=== PATIENT | male | born 1940 | race African-American/Black ===

== ENCOUNTER 2016-12-29 07:35 | Observation (INO) | payer OTHER ==
[~2016-12-29] VITALS: Ht 182.9 cm; Wt 81.6 kg
--- NOTE | ~2016-12-29 | DS ---
Unit #: [id number] #: [id number] Patient: BECKY GANT [id number] [address] [address] [id number] I MR#: [id number] NAME: BECKY GANT ROOM: 469 Age: 76 Sex: M Admission Date: 12/29/2016 : 1940 Discharge Date: Attending Physician: Migel Prescott M.D. Primary Care Physician: Ayesha Prasad M.D. DISCHARGE SUMMARY DISCHARGE DIAGNOSES 1. Obstipation. 2. Hypertension, uncontrolled. 3. Mild protein malnutrition. 4. Dementia. 5. Benign prostatic hypertrophy. 6. Mild hyponatremia. 7. Mild hypocalcemia. 8. Bilateral atelectasis. CONSULTATION None. PROCEDURES None. DIAGNOSTIC STUDIES LABORATORY: Urine culture negative. Blood cultures negative. Lactic acid 1.4. BNP 89. Ammonia 31. IMAGING: Chest x-ray, on December 29, shows no infiltrate. CT of the abdomen and pelvis shows no definite acute abnormality. Right small pleural effusion. Bilateral pulmonary consolidation, possibly atelectasis instead of infiltrate present. CT abdomen did not mention any abdominal obstruction. ALLERGIES None. DISCHARGE MEDICATIONS 1. Flomax 0.8 mg p.o. daily. 2. Tylenol 650 mg q.6 p.r.n. 3. Zofran 4 mg q.4 p.r.n. nausea. 4. Delsym 60 mg p.o. b.i.d. p.r.n. 5. Lopressor 50 mg p.o. b.i.d. 6. Bisacodyl 10 mg p.r.n. constipation. 7. Senna two tablets p.o. daily. 8. Colace 100 mg p.o. b.i.d. 9. Milk of Magnesia 30 mL p.o. daily p.r.n. constipation. 10. MiraLax 17 g p.o. daily p.r.n. constipation. 11. Hydrochlorothiazide 25 mg p.o. daily. 12. Lipitor 40 mg daily. 13. Lisinopril 20 mg daily. 14. Aspirin 325 mg daily. Unit #: [id number] #: [id number] Patient: BECKY GANT HOSPITALIZATION COURSE A 76-year-old admitted because of obstipation. Obstipation with severe constipation: The patient received Fleets enema, currently resolved, continue with stool softeners. Bilateral lung atelectasis, less likely pneumonia. No signs of infection. [facility]. The patient needs to be more mobile as much as possible to prevent further atelectasis and pneumonia. Hypertension, uncontrolled. Hydrochlorothiazide has been added. The patient will be discharged to rehab. Dictated by... Tali Lazo TD: 12/31/2016 12:23 JOB #: [id number] DISCHARGE SUMMARY Page 1 of 1 X Clarisa Montaño MD X DISCHARGE SUMMARY
--- NOTE | ~2016-12-29 | CR72 ---
[facility] A Service of [facility] RADIOLOGY TEXT RESULTS PATIENT: BECKY GANT LOCATION: [facility] : 38 UNIT #: [id number] AGE: [address]: Migel Prescott MD SEX: M ORDER DR: [id number] [facility] [address] [place], [place] [address] [id number] E MR#: [id number] Acc #: [id number] NAME: BECKY GANT : 1940 SEX: M STUDY DATE/TIME: 12/29/2016 8:20 UNIT: [facility] ROOM: STUDY DESCRIPTION: CR Chest Single View Portable Attending Physician: Erica Garvin M.D. Ordering Physician: Erica Garvin M.D. Primary Care Physician: Ayesha Prasad M.D. MEDICAL IMAGING REPORT This report is preliminary unless electronic signature is present EXAM Portable chest INDICATION Shortness of breath and heart palpitations today. COMPARISON 12/27/2016. FINDINGS There is increasing density in the right lung base suggestive of a new infiltrate. Stable atelectasis or consolidation in the medial left base. Heart size stable. IMPRESSION Increasing density in the right lung base suggestive of a new infiltrate. Follow up to clearing is recommended. Dictated by... Blanco Bergman M.D. THIS IS AN ELECTRONICALLY VERIFIED REPORT Blanco Bergman M.D. at 12/29/2016 5:04 PM WILLIAM/yamilka TD: 12/29/2016 09:13 JOB #: [id number] MEDICAL IMAGING REPORT Page 1 of 1 COPY
--- NOTE | ~2016-12-29 | CT4 ---
[facility] A Service of [facility] RADIOLOGY TEXT RESULTS PATIENT: BECKY GANT LOCATION: C4 469-01 : 38 UNIT #: [id number] AGE: [address]: Migel Prescott MD SEX: M ORDER DR: [id number] [facility] [address] [place], [place] [address] [id number] E MR#: [id number] Acc #: [id number] NAME: BECKY GANT : 1940 SEX: M STUDY DATE/TIME: 12/29/2016 8:08 UNIT: [facility] ROOM: STUDY DESCRIPTION: CT Abd and Pelv Wo Cont Attending Physician: Erica Garvin M.D. Ordering Physician: Erica Garvin M.D. Primary Care Physician: Ayesha Prasad M.D. MEDICAL IMAGING REPORT This report is preliminary unless electronic signature is present EXAM CT abdomen and pelvis without contrast, 12/29/2016. COMPARISON None PROCEDURE Axial unenhanced CT abdomen and pelvis with multiplanar reformats. This CT exam was performed with one or more of the following radiation dose reduction techniques: automatic exposure control, adjustment of mA and/or kV according to patient size, and iterative reconstruction. CLINICAL HISTORY One-day history of periumbilical abdominal pain. FINDINGS There is a small right effusion and there is bibasilar lung consolidation with some cystic change thought that cystic change may simply represent underlying emphysematous disease. There are no old studies for comparison. There is also a small pericardial effusion. Images of the upper abdomen reveal multiple bilateral low-density renal lesions almost undoubtedly simple cysts. Unenhanced images of the liver and gallbladder and spleen and pancreas are unremarkable. There is slight ectasia of the abdominal aorta in the mid abdomen but only to 3.0 cm. There is no evidence of bowel obstruction. There is no free air or evidence of abscess. PELVIS: There is some presacral edema but no definite ascites. The [facility] A Service of [facility] RADIOLOGY TEXT RESULTS PATIENT: BECKY GANT LOCATION: [facility] [address] : 38 UNIT #: [id number] AGE: [address]: Migel Prescott MD SEX: M ORDER DR: appendix is not identified on this CT without oral or IV contrast, but there is no direct evidence to suggest appendicitis. There is no hernia. Sclerotic changes in the right ilium are seen most suggestive of Paget disease of bone. The bony structures are otherwise unremarkable. IMPRESSION 1. No definite acute abnormality. There is a small right pleural effusion and there is bilateral pulmonary dependent consolidation, though possibly representing atelectasis instead of infiltrate. At both lung bases, there is some slight cystic change in this portion of lung but it could simply represent underlying emphysema, etiology certain. No comparison studies. 2. Unenhanced images of the liver, spleen, and pancreas and gallbladder are unremarkable. There are low-density renal lesions that are likely cysts but there is no evidence to suggest hydronephrosis and certainly no evidence of nephro or ureterolithiasis. 3. There is some pelvic presacral edema but no ascites. The appendix is not identified on this unenhanced study but there is no evidence to suggest appendicitis. 4. There is slight ectasia of the mid abdominal aorta but only to 3.0 cm. 5. 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 Dictated by... Luiz Mayes M.D. THIS IS AN ELECTRONICALLY VERIFIED REPORT Luiz Mayes M.D. at 12/29/2016 5:04 PM DAVID/james TD: 12/29/2016 09:40 JOB #: [id number] MEDICAL IMAGING REPORT Page 1 of 1 COPY
--- NOTE | ~2016-12-29 | EKG ---
PATIENT: BECKY GANT UNIT #: [id number] Ventricular Rate: 114 BPM Atrial Rate: 117 BPM QRS Duration: 74 ms Q-T Interval: 334 ms QTC Calculation(Bezet): 460 ms Calculated R [place]: 9 degrees Calculated T [place]: 59 degrees Diagnosis Line: Atrial fibrillation with rapid ventricular Diagnosis Line: response Diagnosis Line: Minimal voltage criteria for LVH, may be normal Diagnosis Line: variant Diagnosis Line: Abnormal ECG Diagnosis Line: When compared with ECG of 29-DEC-2016 08:34, Diagnosis Line: (unconfirmed) Diagnosis Line: No significant change was found Diagnosis Line: Confirmed by MICHELLE AG MD ([id number]) on Diagnosis Line: 12/30/2016 9:02:54 AM INTERPRETING MD: KIMBERLI SMILEY
[2016-12-29 08:26] LABS: POC - CKMB 1.7 ng/mL (0.0-7.9); POC - TROPONIN <0.05 ng/mL (<=0.05)
[2016-12-29 08:40] LABS: ALBUMIN SERUM 2.6 g/dL (3.5-5.0); BILIRUBIN, DIRECT 0.2 mg/dL (0.0-0.2); BILIRUBIN,INDIRECT 0.9 mg/dL (0.0-0.9); BILIRUBIN,TOTAL 1.1 mg/dL (0.2-2.0); CREATININE SERUM 0.8 mg/dL (0.6-1.4); GLOM FILT RATE Estimated 99.2 mL/min (>60); POTASSIUM 3.6 mmol/L (3.5-5.1); PROTEIN TOTAL SERUM 6.7 g/dL (6.0-8.3)
[2016-12-29] MEDS ORDERED: ZOSYN 3.373.375 GM/5 IV (08:54)
[2016-12-29] MEDS ORDERED: ASPIRIN ENTERI325 M1 PO (08:54)
[2016-12-29] MEDS ORDERED: LIPITOR40 MG PO (08:54)
[2016-12-29] MEDS ORDERED: LISINOPRIL10 MG PO (08:55)
[2016-12-29] MEDS ORDERED: SENEXON-S TABL1 EACH PO (08:56)
[2016-12-29] MEDS ORDERED: METOPROLOL TAR25 MG PO (08:56)
[2016-12-29 08:57] LABS: BASOPHIL# 0.1 X10e3 (0-0.3); BASOPHIL% 0.5 % (0-2.5); EOSINOPHIL# 0.1 X10e3 (0-0.7); EOSINOPHIL% 0.4 % (0.0-7.0); HEMATOCRIT 29.7 % (38.0-50.0); HEMOGLOBIN 9.5 gm/dL (13.0-16.0); LYMPHOCYTE# 0.8 X10e3 (1.0-3.5); MEAN CORPUSCULAR HEMOGLOBIN 29.4 PG (28-34); MONOCYTE% 12.6 % (3.0-12.0); NEUTROPHIL% 81.5 % (40-75); PLATELET COUNT 319 X10e3 (140-420); RED BLOOD COUNT 3.23 X10e (3.90-5.60); RED CELL DISTRIBUTION WIDTH 13.3 % (11.0-15.5); WHITE BLOOD COUNT 15.9 X10e3 (4.0-10.5)
[2016-12-29] MEDS ORDERED: FLOMAX0.4 M1 PO (08:58)
[2016-12-29 08:59] LABS: URINE SOURCE CATH
[2016-12-29] MEDS ORDERED: MIRALAX17 GM PO (08:59)
[2016-12-29] MEDS ORDERED: TYL325 PO (09:00)
[2016-12-29] MEDS ORDERED: DULCOLAX10 MG PR (09:00)
[2016-12-29] MEDS ORDERED: MILK OF MAGNESIA PO (09:01)
[2016-12-29] MEDS ORDERED: ZOFRAN ODT4 M1 PO (09:01)
[2016-12-29 09:06] LABS: DIFF IND YES
[2016-12-29 09:07] LABS: INR 1.2; PARTIAL THROMBOPLASTIN TIME 27.1 SECONDS (23.5-31.3); PROTHROMBIN TIME (PATIENT) 13.1 SECONDS (10.0-11.7)
[2016-12-29 09:09] LABS: URINE APPEARANCE CLEAR; URINE BILIRUBIN NEG (NEG); URINE BLOOD 3+ (NEG); URINE COLOR YELLOW; URINE GLUCOSE NEG (NEG); URINE KETONE TRACE (NEG); URINE LEUKOCYTE ESTERASE 2+ (NEG); URINE NITRATE NEG (NEG); URINE PROTEIN 1+ (NEG); URINE SPECIFIC GRAVITY 1.023 (1.003-1.035); URINE UROBILINOGEN 0.2 MG/DL (NEG)
[2016-12-29 09:11] LABS: CULTURE INDICATED? YES; URBCS1 AUWI 50-100 /[HPF] (0-2); URINE BACTERIA AUWI NEG (NEGATIVE); URINE SQUAMOUS EPITHELIAL CELL NONE SEEN /[HPF]; UWBCS1 AUWI 50-100 (0-5)
[2016-12-29 09:23] LABS: PLATELET ESTIMATE NORMAL (NORMAL)
[2016-12-29 09:24] LABS: ANISOCYTOSIS SL; POLYCHROMASIA SL
[2016-12-29 11:38] LABS: POC - CKMB <1.0 ng/mL (0.0-7.9); POC - TROPONIN <0.05 ng/mL (<=0.05)
== END 2016-12-31 15:54 ==
LOC: CED 07:35 → CEDOF 12:57 → CED 14:13 → CEDOF 14:13 → C4C 15:55
PROVIDERS: Emergency Medicine
DX: K59.00 Constipation, unspecified (principal); I10 Essential (primary) hypertension; E44.1 Mild protein-calorie malnutrition; F03.90 Unspecified dementia, unspecified severity, without behavioral disturbance, psychotic disturbance, mood disturbance, and anxiety; N40.0 Benign prostatic hyperplasia without lower urinary tract symptoms; E87.1 Hypo-osmolality and hyponatremia; E83.51 Hypocalcemia; J98.11 Atelectasis; I77.811 Abdominal aortic ectasia; M88.851 Osteitis deformans of right thigh
CPT/HCPCS: 36415; 71010; 74176; 80048; 80076; 81003; 82140; 82308; 82553; 83605; 83880; 84484; 85025; 85610; 85730; 87040; 87086; 93005; 94010; 96361; 96365; 96366; 96367; 96368; 97162; 97167; 97535; 99285; G0378; G8978-GP; G8979-GP; G8987-GO; G8988-GO; J2543; J3260; J3370